=== PATIENT | female | born 1985 | race Caucasian/White ===

== ENCOUNTER 2017-10-31 04:30 | Inpatient (IN) | payer OTHER ==
[~2017-10-31] VITALS: Ht 160 cm; Wt 84.0 kg
[2017-10-31] MEDS ORDERED: LACTATED RINGERS 1,000 ML IV SCH ×3 (05:02→06:21)
[2017-10-31] MEDS ORDERED: OXYTOCIN 30U/ 0.9% NaCL 500ML 500 ML IV SCH (05:02)
[2017-10-31] MEDS ORDERED: SODIUM CITRATE/CITRIC ACID 30 ML UDC PO ONE (05:30)
[2017-10-31] MEDS ORDERED: METOCLOPRAMIDE 5 MG/ML, 2ML IV ONE (05:30)
[2017-10-31] MEDS ORDERED: LACTATED RINGERS 1,000 ML IVBOLUS ONE (05:30)
[2017-10-31 05:48] LABS: ALANINE AMINOTRANSFERASE 13 U/L (12-78); ALBUMIN 2.2 g/dL (3.4-5.0); ANION GAP 11 mmol/L (5-15); CALCIUM 8.8 mg/dL (8.5-10.1); CHLORIDE 111 mmol/L (98-107); CREATININE 0.71 mg/dL (0.55-1.02)
[2017-10-31 05:51] LABS: ALKALINE PHOSPHATASE 216 U/L (45-117); BILIRUBIN,TOTAL 0.5 mg/dL (0.2-1.0); TOTAL PROTEIN 6.6 g/dL (6.4-8.2)
[2017-10-31] MEDS ORDERED: METOCLOPRAMIDE 5 MG/ML, 2ML ONE (06:06)
[2017-10-31] MEDS ORDERED: SODIUM CITRATE/CITRIC ACID 30 ML UDC ONE (06:06)
[2017-10-31 06:09] LABS: MICROSCOPIC INDICATED
[2017-10-31 06:17] LABS: MEAN CORPUSCULAR HEMOGLOBIN 29.1 pg (27.0-34.8); MEAN CORPUSCULAR HGB CONC 33.8 g/dL (32.4-35.8); MEAN CORPUSCULAR VOLUME 86.2 fL (80-100); PLATELET COUNT 120 x10^3/uL (130-400); RED CELL DISTRIBUTION WIDTH 15.4 % (9.6-15.2)
[2017-10-31 06:18] LABS: BASOPHILS # (AUTO) 0.04 x10^3/uL (0-0.1); BASOPHILS % (AUTO) 0 % (0-1); EOSINOPHILS # (AUTO) 0.16 x10^3/uL (0-0.4); EOSINOPHILS % (AUTO) 1 % (1-7); LYMPHOCYTES # (AUTO) 2.21 x10^3/uL (1-3.4); LYMPHOCYTES % (AUTO) 19 % (22-44); MD SCAN; MONOCYTES # (AUTO) 0.91 x10^3/uL (0.2-0.8); MONOCYTES % (AUTO) 8 % (2-9); NEUTROPHILS # (AUTO) 8.28 x10^3/uL (1.8-6.8); NEUTROPHILS % (AUTO) 71 % (42-75)
[2017-10-31] MEDS: OXYTOCIN 30U/ 0.9% NaCL 500ML 500 ML IV SCH ×2 (06:21→18:13)
[2017-10-31] MEDS ORDERED: FENTANYL PF 100 MCG/2ML ONE (06:21)
[2017-10-31] MEDS: LACTATED RINGERS 1,000 ML IV SCH ×3 (06:21→22:38)
[2017-10-31] MEDS ORDERED: EPHEDRINE 50 MG/ML, 1ML ONE (06:21)
[2017-10-31] MEDS ORDERED: PHENYLEPHRINE 10 MG/ML ONE (06:21)
[2017-10-31] MEDS ORDERED: DEXAMETHASONE 4 MG/ML, 1ML ONE (06:21)
[2017-10-31] MEDS ORDERED: CEFAZOLIN 1,000 MG ONE (06:21)
[2017-10-31] MEDS ORDERED: OXYTOCIN 10 UNITS/ML, 1ML ONE (06:21)
[2017-10-31] MEDS ORDERED: ONDANSETRON 2MG/ML, 2ML ONE (06:21)
[2017-10-31] MEDS ORDERED: KETOROLAC 30 MG/1 ML ONE (06:21)
[2017-10-31] MEDS ORDERED: ONDANSETRON 2MG/ML, 2ML IVPush PRN (06:30)
[2017-10-31] MEDS ORDERED: METHYLERGONOVINE 0.2 MG/ML IM PRN (06:30)
[2017-10-31] MEDS ORDERED: OXYcodone 5 MG/5 ML ORAL.SOL UDC PO PRN (06:30)
[2017-10-31] MEDS ORDERED: ACETAMINOPHEN 325 MG TABLET PO PRN (06:30)
[2017-10-31] MEDS ORDERED: MEPERIDINE/PF 25MG/0.5ML IVPush PRN (06:30)
[2017-10-31] MEDS ORDERED: LABETALOL 5MG/ML, 20ML IV PRN (06:30)
[2017-10-31] MEDS ORDERED: CARBOPROST TROMETHAMINE 250 MCG/ML, 1ML IM PRN (06:30)
[2017-10-31] MEDS ORDERED: HYDROcodone/APAP 7.5-325MG/15ML UDC PO PRN (06:30)
[2017-10-31] MEDS ORDERED: HYDROmorphone 1 MG/ML, 1ML IV PRN (06:30)
[2017-10-31] MEDS ORDERED: FENTANYL PF 100 MCG/2ML IV PRN (06:30)
[2017-10-31] MEDS ORDERED: MISOPROSTOL 200 MCG TABLET PR PRN (06:30)
[2017-10-31] MEDS ORDERED: PROMETHAZINE 25 MG/ML, 1ML IV PRN (06:30)
[2017-10-31] MEDS ORDERED: ALBUTEROL/IPRATROPIUM 2.5MG/0.5MG, 3 ML NPPB PRN (06:30)
[2017-10-31] MEDS ORDERED: morphine SULFATE 10 MG/ML, 1ML IVPush PRN ×2 (06:30)
[2017-10-31] MEDS ORDERED: hydrALAzine 20 MG/ML, 1ML IV PRN (06:30)
[2017-10-31] MEDS ORDERED: EPHEDRINE 50 MG/ML, 1ML IVPush PRN (06:30)
[2017-10-31] MEDS ORDERED: OXYTOCIN 30U/ 0.9% NaCL 500ML 500 ML ONE ×2 (08:07→18:08)
[2017-10-31] MEDS ORDERED: OXYcodone 5 MG/5 ML ORAL.SOL UDC ONE (08:22)
[2017-10-31] MEDS: PRENATAL VIT/IRON/FA 1 EACH TABLET PO SCH (09:00)
[2017-10-31 09:45] VITALS: BP 131/90
[2017-10-31 12:00] VITALS: BP 121/86
[2017-10-31] MEDS: ONDANSETRON 2MG/ML, 2ML IV PRN ×2 (13:43→20:05)
[2017-10-31 13:56] LABS: ALANINE AMINOTRANSFERASE 12 U/L (12-78); ALBUMIN 1.9 g/dL (3.4-5.0); ANION GAP 9 mmol/L (5-15); CALCIUM 7.8 mg/dL (8.5-10.1); CHLORIDE 109 mmol/L (98-107); CREATININE 0.71 mg/dL (0.55-1.02)
[2017-10-31 13:58] LABS: ALKALINE PHOSPHATASE 219 U/L (45-117); BILIRUBIN,TOTAL 0.5 mg/dL (0.2-1.0); TOTAL PROTEIN 5.2 g/dL (6.4-8.2)
[2017-10-31 14:30] VITALS: BP 128/82
[2017-10-31 14:35] LABS: MEAN CORPUSCULAR HEMOGLOBIN 28.9 pg (27.0-34.8); MEAN CORPUSCULAR HGB CONC 33.2 g/dL (32.4-35.8); MEAN CORPUSCULAR VOLUME 87.1 fL (80-100); MEAN PLATELET VOLUME 10.8 fL (7.4-10.4); PLATELET COUNT 103 x10^3/uL (130-400); RED BLOOD COUNT 2.98 x10^6/uL (3.82-5.3); RED CELL DISTRIBUTION WIDTH 15.2 % (9.6-15.2)
[2017-10-31 14:52] LABS: MD YES
[2017-10-31 14:54] LABS: BAND#(MANUAL) 1.04 x10^3/uL; BANDS%(MANUAL) 6 % (0-7); LYMPH#(MANUAL) 1.21 x10^3/uL (1-3.4); LYMPHS% (MANUAL) 7 % (22-44); MONOS#(MANUAL) 1.04 x10^3/uL (0.3-2.7); MONOS% (MANUAL) 6 % (2-9); SEG#(MANUAL) 14.01 x10^3/uL (1.8-6.8); SEGS% (MANUAL) 81 % (42-75)
[2017-10-31 14:55] LABS: <PLATELET ESTIMATE> DECREASED; ANISOCYTOSIS 1+; GIANT PLATELETS 1+; LARGE PLATELETS 1+; POLYCHROMASIA 1+
[2017-10-31] MEDS ORDERED: HYDROmorphone 2 MG/ML, 1ML IVPush PRN (15:00)
[2017-10-31 19:15] VITALS: BP 124/79
[2017-11-01] VITALS: BP 121/79
[2017-11-01] MEDS: OXYcodone/APAP 5/325MG TABLET PO PRN ×5 (01:23→21:49)
[2017-11-01] MEDS: OXYTOCIN 30U/ 0.9% NaCL 500ML 500 ML IV SCH ×3 (02:21→22:21)
[2017-11-01 04:00] VITALS: BP 118/71
[2017-11-01 06:37] LABS: MEAN CORPUSCULAR HEMOGLOBIN 28.5 pg (27.0-34.8); MEAN CORPUSCULAR HGB CONC 32.9 g/dL (32.4-35.8); MEAN CORPUSCULAR VOLUME 86.6 fL (80-100); MEAN PLATELET VOLUME 13.3 fL (7.4-10.4); PLATELET COUNT 104 x10^3/uL (130-400); RED BLOOD COUNT 2.45 x10^6/uL (3.82-5.3); RED CELL DISTRIBUTION WIDTH 14.9 % (9.6-15.2)
[2017-11-01 07:30] VITALS: BP 136/81
[2017-11-01 08:16] LABS: BASOPHILS # (AUTO) 0.05 x10^3/uL (0-0.1); BASOPHILS % (AUTO) 1 % (0-1); EOSINOPHILS # (AUTO) 0.03 x10^3/uL (0-0.4); EOSINOPHILS % (AUTO) 0 % (1-7); LYMPHOCYTES # (AUTO) 1.65 x10^3/uL (1-3.4); LYMPHOCYTES % (AUTO) 14 % (22-44); MD SCAN; MONOCYTES # (AUTO) 0.74 x10^3/uL (0.2-0.8); MONOCYTES % (AUTO) 6 % (2-9); NEUTROPHILS # (AUTO) 9.37 x10^3/uL (1.8-6.8); NEUTROPHILS % (AUTO) 79 % (42-75)
[2017-11-01] MEDS: DOCUSATE 100 MG CAPSULE PO PRN ×2 (08:19→21:49)
[2017-11-01] MEDS: PRENATAL VIT/IRON/FA 1 EACH TABLET PO SCH (09:00)
[2017-11-01 11:26] VITALS: BP 130/76
[2017-11-01] MEDS: LACTATED RINGERS 1,000 ML IV SCH ×2 (12:21→22:21)
[2017-11-01] MEDS: SIMETHICONE 80 MG CHEW TAB PO PRN (13:30)
[2017-11-01] MEDS: IBUPROFEN 600 MG TABLET PO PRN (13:30)
[2017-11-01 20:00] VITALS: BP 121/80
[2017-11-02] MEDS: OXYcodone/APAP 5/325MG TABLET PO PRN ×4 (05:25→22:02)
[2017-11-02 06:55] VITALS: BP 124/71
[2017-11-02] MEDS: OXYTOCIN 30U/ 0.9% NaCL 500ML 500 ML IV SCH (07:06)
[2017-11-02] MEDS: LACTATED RINGERS 1,000 ML IV SCH (07:06)
[2017-11-02] MEDS: PRENATAL VIT/IRON/FA 1 EACH TABLET PO SCH (09:00)
[2017-11-02] MEDS: DOCUSATE 100 MG CAPSULE PO PRN ×2 (11:18→22:02)
[2017-11-02] MEDS: IBUPROFEN 600 MG TABLET PO PRN ×2 (11:18→17:16)
[2017-11-02] MEDS: FERROUS SULFATE 325 MG TABLET PO SCH (17:16)
[2017-11-02 19:40] VITALS: BP 124/84
[2017-11-03] MEDS: IBUPROFEN 600 MG TABLET PO PRN ×3 (00:55→13:28)
[2017-11-03] MEDS: OXYcodone/APAP 5/325MG TABLET PO PRN ×5 (02:32→14:48)
[2017-11-03] MEDS: SIMETHICONE 80 MG CHEW TAB PO PRN (02:36)
[2017-11-03] MEDS ORDERED: IBUP-1222 PO (04:48)
[2017-11-03] MEDS ORDERED: OXYC-302 PO (04:48)
[2017-11-03] MEDS ORDERED: SENN-1 PO (04:50)
[2017-11-03] MEDS ORDERED: FERR324T8 PO (04:53)
[2017-11-03] MEDS ORDERED: SIME80TA16 PO (05:00)
[2017-11-03 07:40] VITALS: BP 129/82
[2017-11-03] MEDS: PRENATAL VIT/IRON/FA 1 EACH TABLET PO SCH (09:00)
[2017-11-03] MEDS: FERROUS SULFATE 325 MG TABLET PO SCH ×2 (10:02→13:28)
[2017-11-03] MEDS: DOCUSATE 100 MG CAPSULE PO PRN (10:02)
[2017-11-03] MEDS: LACTATED RINGERS 1,000 ML IV SCH (14:21)
[2017-11-03] MEDS: OXYTOCIN 30U/ 0.9% NaCL 500ML 500 ML IV SCH (14:21)
== END 2017-11-03 17:00 | disposition home or self-care (01) | DRG 765 ==
LOC: LDOP 04:30 → LDIP 05:03 → 2NW 09:32
PROVIDERS: ADMIT Obstetrics & Gynecology; ATTEND Obstetrics & Gynecology
PROC: 10D00Z1 Extraction of Products of Conception, Low, Open Approach (ICD-10-PCS; principal; 2017-10-31)
DX: O30.043 Twin pregnancy, dichorionic/diamniotic, third trimester (principal); O72.1 Other immediate postpartum hemorrhage; Z37.2 Twins, both liveborn; O32.9XX0 Maternal care for malpresentation of fetus, unspecified, not applicable or unspecified; Z3A.37 37 weeks gestation of pregnancy
CPT/HCPCS: 36415; 80053; 81001; 84550; 85025; 86850; 86900; 88307; 99285; J0690; J1100; J1170; J1885; J2405; J3010; J2270; J2370; J2590; J2765; J7120

== ENCOUNTER 2019-06-29 12:47 | Observation (INO) ==
[~2019-06-29] VITALS: Ht 160 cm; Wt 80.9 kg
[~2019-06-29 12:47] MED LIST: FERR324T8 PO; IBUP-1222 PO; OXYC-302 PO; SENN-92 PO; SIME80TA16 PO
[2019-06-29] MEDS ORDERED: D5%-LACTATED RINGERS 1,000 ML IV SCH (13:00)
[2019-06-29] MEDS ORDERED: LACTATED RINGERS 1,000 ML IVBOLUS ONE (13:00)
[2019-06-29] MEDS ORDERED: ONDANSETRON 2MG/ML, 2ML IVPush ONE (13:00)
[2019-06-29] MEDS ORDERED: ONDANSETRON 2MG/ML, 2ML ONE (13:06)
[2019-06-29 13:19] LABS: BASOPHILS % (AUTO) 0 % (0-1); EOSINOPHILS # (AUTO) 0.16 x10^3/uL (0-0.4); EOSINOPHILS % (AUTO) 1 % (1-7); LYMPHOCYTES # (AUTO) 0.69 x10^3/uL (1-3.4); LYMPHOCYTES % (AUTO) 4 % (22-44); MD NO; MEAN CORPUSCULAR HEMOGLOBIN 30.7 pg (27.0-34.8); MEAN CORPUSCULAR HGB CONC 33.3 g/dL (32.4-35.8); MEAN CORPUSCULAR VOLUME 92.3 fL (80-100); MEAN PLATELET VOLUME 10.3 fL (7.4-10.4); MONOCYTES # (AUTO) 0.63 x10^3/uL (0.2-0.8); MONOCYTES % (AUTO) 4 % (2-9); NEUTROPHILS % (AUTO) 91 % (42-75); PLATELET COUNT 178 x10^3/uL (130-400); RED BLOOD COUNT 4.26 x10^6/uL (3.82-5.3); RED CELL DISTRIBUTION WIDTH 13.1 % (9.6-15.2)
[2019-06-29 13:22] VITALS: BP 102/59
[2019-06-29 13:30] LABS: ALANINE AMINOTRANSFERASE 14 U/L (12-78); ALBUMIN 2.7 g/dL (3.4-5.0); ANION GAP 8 mmol/L (5-15); CALCIUM 8.4 mg/dL (8.5-10.1); CHLORIDE 110 mmol/L (98-107); CREATININE 0.57 mg/dL (0.55-1.02)
[2019-06-29 13:32] LABS: ALKALINE PHOSPHATASE 109 U/L (45-117); BILIRUBIN,TOTAL 0.4 mg/dL (0.2-1.0); TOTAL PROTEIN 7.3 g/dL (6.4-8.2)
[2019-06-29 14:01] LABS: MICROSCOPIC INDICATED
[2019-06-29] MEDS ORDERED: PROMETHAZINE 25 MG/ML, 1ML ONE (15:20)
[2019-06-29] MEDS ORDERED: LACTATED RINGERS 1,000 ML IV SCH (15:30)
[2019-06-29] MEDS ORDERED: PROMETHAZINE 25 MG/ML, 1ML IM ONE (15:30)
[2019-06-29] MEDS ORDERED: PREN1TAB10 PO (17:25)
[2019-06-29] MEDS ORDERED: DIPH1TAB PO (18:02)
== END 2019-06-29 18:00 | disposition home or self-care (01) ==
LOC: LDOP 12:47 → LDIP 13:27
PROVIDERS: ADMIT Obstetrics & Gynecology; ATTEND Obstetrics & Gynecology
DX: O21.2 Late vomiting of pregnancy (principal); O60.03 Preterm labor without delivery, third trimester; O09.03 Supervision of pregnancy with history of infertility, third trimester; O34.219 Maternal care for unspecified type scar from previous cesarean delivery; O99.283 Endocrine, nutritional and metabolic diseases complicating pregnancy, third trimester; E86.0 Dehydration; Z3A.32 32 weeks gestation of pregnancy; Z79.899 Other long term (current) drug therapy
CPT/HCPCS: 36415; 59025; 80053; 81001; 85025; 87086; 96361; 96372; 96374; 99201; G0378; J2405; J2550; J7120; J7121; 96365; 96366; G0463

== ENCOUNTER 2019-07-01 17:35 | Outpatient (CLI) | payer OTHER ==
[~2019-07-01] VITALS: Ht 160 cm; Wt 81.0 kg
[~2019-07-01 17:35] MED LIST changes: +DIPH1TAB PO; +PREN1TAB10 PO
[2019-07-01 18:12] LABS: RAPID INFLUENZA A Negative (Negative); RAPID INFLUENZA B Negative (Negative)
== END 2019-07-01 18:23 | disposition home or self-care (01) ==
LOC: LDOP 17:35
PROVIDERS: ATTEND Obstetrics & Gynecology
DX: Z34.93 Encounter for supervision of normal pregnancy, unspecified, third trimester (principal); Z3A.32 32 weeks gestation of pregnancy
CPT/HCPCS: 59025; 87400; 99211; G0463